=== PATIENT | female | born 1975 | race Caucasian/White ===

== ENCOUNTER 2016-07-28 21:16 | Emergency (ER) | payer SELFPAY ==
[2016-07-28] MEDS ORDERED: Albuterol-Ipratrop 3 mg / 0.5 (3 ml) UD ONE ×2 (21:30→22:42)
[2016-07-28] MEDS ORDERED: Albuterol-Ipratrop 3 mg / 0.5 (3 ml) UD INH STA (22:17)
--- NOTE | 2016-07-28 22:17 | C.PDOC ---
History Of Present Illness Patient is a 40 year old female who presents to the ER with a complaint of SOB and wheezing. Patient states she has been taking her home asthma medication with no relief. Denies fever, chills or chest pain. Chief Complaint (Nursing): Shortness Of Breath History Per: Patient History/Exam Limitations: no limitations Onset/Duration Of Symptoms: Days Current Symptoms Are (Timing): Still Present Initiating Event: Other (Not known) Current Respiratory Medications: See Home Med List Associated Symptoms: denies: Fever, Chills, Chest Pain Recent travel outside of the [place]: No Past Medical History Reviewed: Historical Data, Nursing Documentation, Vital Signs Vital Signs: Last Vital Signs Temp 97.9 F 07/29/16 01:10 Pulse 94 H 07/29/16 01:10 Resp 18 07/29/16 01:10 BP 172/92 H 07/29/16 01:10 Pulse Ox 98 07/29/16 01:10 - Medical History PMH: Asthma, HTN, Hypercholesterolemia, Rheumatoid Arthritis, Sleep Apnea Surgical History: Cholecystectomy - [facility] Procedures INJECT/INFUSE NEC (12/10/12) Family History: States: Unknown Family Hx - Social History Hx Tobacco Use: No Hx Alcohol Use: No Hx Substance Use: No - Immunization History Hx Tetanus Toxoid Vaccination: No Hx Influenza Vaccination: No Hx Pneumococcal Vaccination: No Review Of Systems Constitutional: Negative for: Fever, Chills Cardiovascular: Negative for: Chest Pain Respiratory: Positive for: Shortness of Breath, Wheezing Physical Exam - Physical Exam Appears: Non-toxic, Other (Mildly dyspenic) Skin: Normal Color, Warm, Dry Head: Atraumatic, Normacephalic Eye(s): bilateral: Normal Inspection, EOMI Oral Mucosa: Moist Chest: Symmetrical, No Tenderness Cardiovascular: Rhythm Regular, No Murmur Respiratory: No Rales, Rhonchi, Wheezing Gastrointestinal/Abdominal: Soft, No Tenderness Neurological/Psych: Oriented x3, Normal Speech, Normal Cognition ED Course And Treatment - Laboratory Results Result Diagrams: 07/28/16 22:35 07/28/16 22:35 O2 Sat by Pulse Oximetry: 96 (Room air) Pulse Ox Interpretation: Normal Progress Note: EKG, CXR and blood work ordered. Nebulizer treatment administered. On reexamination, patient feels better, is no longer dyspenic, no longer wheezing, will be discharged home and advised to follow up with PMD. Disposition Counseled Patient/Family Regarding: Diagnosis - Disposition Referrals: at [facility] [Outside] Disposition: HOME/ ROUTINE Disposition Time: 00:57 Condition: STABLE Prescriptions: Albuterol/Ipratropium [Duoneb 3 MG/3 Ml-0.5 MG/3 Ml 3 Ml] 3 ml IH Q6 #20 neb Azithromycin [Zithromax Tri-Luis Daniel] 500 mg PO DAILY #7 tablet Benzonatate [Tessalon Perle] 100 mg PO TID #14 capsule Methylprednisolone [Medrol Dose Pack (21 tabs)] 4 mg PO DAILY #21 mg Instructions: Asthma (ED), Upper Respiratory Infection (ED), Wheezing (ED) - POA Present On Arrival: None - Clinical Impression Clinical Impression: Dyspnea, Upper respiratory infection, Asthma - Scribe Statement The provider has reviewed the documentation as recorded by the Scribe Wily Thomas All medical record entries made by the Scribe were at my direction and personally dictated by me. I have reviewed the chart and agree that the record accurately reflects my personal performance of the history, physical exam, medical decision making, and the department course for this patient. I have also personally directed, reviewed, and agree with the discharge instructions and disposition.
[2016-07-28 22:41] LABS: BASO # 0.1 K/uL (0.0-0.2); BASO % 0.4 % (0.0-2.0); EOS # 0.1 K/uL (0.0-0.7); EOS % 0.3 % (0.0-4.0); HEMATOCRIT 40.6 % (34.0-47.0); LYMPH # 4.6 K/uL (1.0-4.3); LYMPH % 26.4 % (20.0-40.0); MEAN CELL VOLUME 83.8 fL (81.0-99.0); MEAN CORPUSCULAR HEMOGLOBIN 28.7 pg (27.0-31.0); MEAN CORPUSCULAR HGB CONC 34.3 g/dL (33.0-37.0); MONO # 1.1 K/uL (0.0-0.8); MONO % 6.2 % (0.0-10.0); RED CELL DISTRIBUTION WIDTH 14.4 % (11.5-14.5); WHITE BLOOD COUNT 17.3 K/uL (4.8-10.8)
[2016-07-28 22:48] LABS: CHLORIDE 100 mmol/L (98-107)
[2016-07-28 22:49] LABS: POTASSIUM 3.3 mmol/L (3.6-5.2); SODIUM 140 mmol/L (132-148)
[2016-07-28 22:51] LABS: ALB/GLOB RATIO 1.2 (1.0-2.1); ALKALINE PHOSPHATASE 115 U/L (38-126); ALT/SGPT 25 U/L (9-52); AST/SGOT 18 U/L (14-36); BILIRUBIN,TOTAL 0.5 mg/dL (0.2-1.3); BLOOD UREA NITROGEN 15 mg/dL (7-17); CARBON DIOXIDE 28 mmol/L (22-30); GFR AFRICAN-AMERICAN > 60; TOTAL PROTEIN 7.3 g/dL (6.3-8.3)
[2016-07-28 22:52] LABS: CALCIUM 9.2 mg/dl (8.6-10.4); GLUCOSE,RANDOM 106 mg/dL (65-105)
[2016-07-29] MEDS ORDERED: Potassium Chloride 20 mEq/15 ml LIQ UD PO STA (00:51)
[2016-07-29] MEDS ORDERED: Potassium Chloride 20 mEq/15 ml LIQ UD ONE (01:00)
[2016-07-29 01:14] VITALS: BP 172/92; PULSE 94; RESP 18; TEMP 97.9
--- NOTE | 2016-07-29 08:50 | RAD ---
HISTORY: Shortness of breath COMPARISON: No prior. TECHNIQUE: Chest PA and lateral FINDINGS: LUNGS: Mild venous congestion. PLEURA: No significant pleural effusion identified. No pneumothorax apparent. CARDIOVASCULAR: Normal. OSSEOUS STRUCTURES: Degenerative changes in the spine. Lucency through the inferior left scapula may represent artifact. VISUALIZED UPPER ABDOMEN: Normal. OTHER FINDINGS: None. IMPRESSION: Mild venous congestion.
[2016-08-01 19:38] VITALS: O2SAT 96
== END 2016-07-29 01:16 | disposition home or self-care (01) ==
LOC: C.ER 21:16
DX: J06.9 Acute upper respiratory infection, unspecified (principal); J45.909 Unspecified asthma, uncomplicated
CPT/HCPCS: 71020; 80053; 83880; 84484; 85025; 85378; 94640; 96374; 99285; J2930

== ENCOUNTER 2016-10-05 21:37 | Emergency (ER) | payer SELFPAY ==
--- NOTE | 2016-10-05 21:54 | C.PDOC ---
History Of Present Illness Patient presents to the ER with a complaint of a sharp, stabbing, cramping, mid epigastric pain since last night. Denies fever or chills. Time Seen by Provider: 10/05/16 21:54 Chief Complaint (Nursing): Abdominal Pain History Per: Patient History/Exam Limitations: no limitations Onset/Duration Of Symptoms: Days Current Symptoms Are (Timing): Still Present Severity: Moderate Pain Scale Rating Of: 4 Location Of Pain/Discomfort: Epigastric Radiation Of Pain To:: None Quality Of Discomfort: Unable To Describe Associated Symptoms: denies: Fever, Chills Exacerbating Factors: None Alleviating Factors: None Recent travel outside of the [place]: No Abnormal Vaginal Bleeding: No Past Medical History Reviewed: Historical Data, Nursing Documentation, Vital Signs Vital Signs: Last Vital Signs Temp 98.0 F 10/05/16 21:40 Pulse 96 H 10/05/16 21:40 Resp 18 10/05/16 21:40 BP 177/118 H 10/05/16 21:40 Pulse Ox 96 10/05/16 22:10 - Medical History PMH: Asthma, HTN, Hypercholesterolemia, Rheumatoid Arthritis, Sleep Apnea Surgical History: Cholecystectomy - [facility] Procedures INJECT/INFUSE NEC (12/10/12) Family History: States: No Known Family Hx - Social History Hx Tobacco Use: No Hx Alcohol Use: No Hx Substance Use: No - Immunization History Hx Tetanus Toxoid Vaccination: No Hx Influenza Vaccination: No Hx Pneumococcal Vaccination: No Review Of Systems Constitutional: Negative for: Fever, Chills Gastrointestinal: Positive for: Abdominal Pain. Negative for: Nausea, Vomiting Physical Exam - Physical Exam Appears: Non-toxic Skin: Warm, Dry Oral Mucosa: Moist Chest: Symmetrical, No Tenderness Cardiovascular: Rhythm Regular, No Murmur Respiratory: No Rales, No Rhonchi, No Wheezing Gastrointestinal/Abdominal: Soft, No Tenderness, Distention, No Guarding, No Rebound, Other (Tympanic to percussion) Neurological/Psych: Oriented x3 ED Course And Treatment - Laboratory Results Result Diagrams: 10/05/16 22:25 10/05/16 22:25 ECG: Interpreted By Me, Viewed By Me ECG Rhythm: Sinus Rhythm (92), R BBB, Nonspecific Changes O2 Sat by Pulse Oximetry: 96 Pulse Ox Interpretation: Normal Progress Note: Blood work and urinalysis ordered. Toradol, zofran, and protonix administered. spoke with the pt at length about following up regarding the ovarian cyst to rule out ovarian cancerr. pt states that she will. She does state that she get thewse ovarian cysts removed every year or so Reevaluation Time: 01:08 Reassessment Condition: Improved Medical Decision Making Medical Decision Making: Upon provider reevaluation patient is feeling better, is medically stable, and requires no further treatment in the ED at this time. Patient will be discharged home . Counseling was provided and all questions were answered regarding diagnosis and need for follow up with the referred clinic. There is agreement to discharge plan. Return if symptoms persist or worsen. Disposition Counseled Patient/Family Regarding: Studies Performed, Diagnosis, Need For Followup - Disposition Referrals: [facility] [Outside] [facility] [Outside] Disposition: HOME/ ROUTINE Disposition Time: 21:54 Condition: FAIR Additional Instructions: Please follow up regarding the ovarian cyst Instructions: Abdominal Pain (ED), Ovarian Cyst (ED) Forms: [employer] (Romanian) - Clinical Impression Clinical Impression: Abdominal pain, Ovarian cyst - Scribe Statement The provider has reviewed the documentation as recorded by the Scribe Wily Thomas All medical record entries made by the Scribe were at my direction and personally dictated by me. I have reviewed the chart and agree that the record accurately reflects my personal performance of the history, physical exam, medical decision making, and the department course for this patient. I have also personally directed, reviewed, and agree with the discharge instructions and disposition.
[2016-10-05 21:57] VITALS: RESP 18
[2016-10-05 22:27] LABS: BASO # 0.1 K/uL (0.0-0.2); BASO % 0.9 % (0.0-2.0); EOS # 0.2 K/uL (0.0-0.7); EOS % 1.4 % (0.0-4.0); LYMPH # 4.4 K/uL (1.0-4.3); LYMPH % 36.8 % (20.0-40.0); MEAN CORPUSCULAR HEMOGLOBIN 29.4 pg (27.0-31.0); MEAN CORPUSCULAR HGB CONC 34.6 g/dL (33.0-37.0); MEAN PLATELET VOLUME 8.1 fL (7.2-11.7); MONO # 0.6 K/uL (0.0-0.8); RED CELL DISTRIBUTION WIDTH 14.5 % (11.5-14.5)
[2016-10-05 22:37] LABS: CHLORIDE 100 mmol/L (98-107); POTASSIUM 3.3 mmol/L (3.6-5.2); SODIUM 141 mmol/L (132-148)
[2016-10-05 22:39] LABS: BILIRUBIN,TOTAL 0.5 mg/dL (0.2-1.3); GFR AFRICAN-AMERICAN > 60
[2016-10-05 22:40] LABS: ALB/GLOB RATIO 1.2 (1.0-2.1); ALKALINE PHOSPHATASE 105 U/L (38-126); ALT/SGPT 30 U/L (9-52); AST/SGOT 17 U/L (14-36); BLOOD UREA NITROGEN 13 mg/dL (7-17); CARBON DIOXIDE 28 mmol/L (22-30); GLUCOSE,RANDOM 98 mg/dL (65-105); TOTAL PROTEIN 6.7 g/dL (6.3-8.3)
[2016-10-05 22:44] LABS: INR 1.1
[2016-10-05 22:52] LABS: RBC URINE 1 /hpf (0-3); URINE BACTERIA RARE (<OCC); URINE BILIRUBIN NEGATIVE (NEGATIVE); URINE BLOOD NEGATIVE (NEGATIVE); URINE COLOR Yellow (YELLOW); URINE GLUCOSE (UA) NORMAL (Normal); URINE KETONE NEGATIVE (NEGATIVE); URINE LEUKOCYTE ESTERASE NEG Leu/uL (Negative); URINE PROTEIN NEGATIVE (NEGATIVE); URINE UROBILINOGEN NORMAL mg/dL (0.2-1.0); WBC URINE 2 /hpf (0-5)
[2016-10-06] MEDS ORDERED: Iodixanol 320 MG/ML 100 ML BOTTLE IV ONE (00:22)
[2016-10-06 02:06] VITALS: BP 158/93; PULSE 67; TEMP 98; O2SAT 97
--- NOTE | 2016-10-06 08:50 | CT ---
PROCEDURE: CT Abdomen and Pelvis with intravenous contrast. HISTORY: Abdominal pain COMPARISON: None. TECHNIQUE: Contiguous axial images of the abdomen and pelvis. Intravenous contrast was administered. Coronal and Sagittal reformats generated. Radiation dose: Total exam DLP = 936 mGy-cm. This CT exam was performed using one or more of the following dose reduction techniques: Automated exposure control, adjustment of the mA and/or kV according to patient size, and/or use of iterative reconstruction technique. FINDINGS: LOWER THORAX: 4 millimeter subpleural pulmonary nodule at the lateral aspect of the right middle lobe. LIVER: Fatty infiltration of the liver. GALLBLADDER AND BILE DUCTS: Prior cholecystectomy. PANCREAS: Unremarkable. No mass. No ductal dilatation. SPLEEN: Unremarkable. No splenomegaly. ADRENALS: Unremarkable. KIDNEYS AND URETERS: Left renal low-attenuation foci which are too small to adequately characterize. For example, in the lower pole, there is a 7 millimeter hypoechoic cyst with peripheral punctate echogenic focus measuring 1-2 millimeters demonstrating a Hounsfield unit attenuation of 44, indeterminate. This may be better evaluated with multiphasic CT or MR if clinically indicated. BLADDER: Urinary bladder wall is mildly prominent in thickness which may be secondary to a decompressed state or secondary to a cystitis. REPRODUCTIVE: 24 x 15 x 20 centimeter pelvic cyst with septations most likely of ovarian origin. Small left ovarian follicle. Heterogeneous appearance of to the uterus/remnant uterus with internal low-attenuation foci. Correlation with pelvic ultrasound may be helpful if clinically indicated. APPENDIX: Unremarkable. BOWEL: Unremarkable. No obstruction. No gross mural thickening. PERITONEUM: Unremarkable. No fluid collection. No free air. LYMPH NODES: Unremarkable. No enlarged lymph nodes. VASCULATURE: Unremarkable. No aortic aneurysm. BONES: Degenerative changes. OTHER FINDINGS: None. IMPRESSION: 24 x 15 x 20 centimeter pelvic cyst with septations most likely of ovarian origin. Given the position of the cyst, this most likely originates from the right ovary and is worrisome for an ovarian neoplasm. Clinical correlation. Urinary bladder wall is mildly prominent in thickness which may be secondary to a decompressed state or secondary to a cystitis. Clinical correlation. Heterogeneous appearance of to the uterus/remnant uterus with internal low-attenuation foci. Correlation with pelvic ultrasound may be helpful if clinically indicated. Left renal low-attenuation foci which are too small to adequately characterize. For example, in the lower pole, there is a 7 millimeter hypoechoic cyst with peripheral punctate echogenic focus measuring 1-2 millimeters demonstrating a Hounsfield unit attenuation of 44, indeterminate. This may be better evaluated with multiphasic CT or MR if clinically indicated. These findings were preliminarily reported at 12:59 a.m. on 10/06/[address] Julio Child from [facility].
--- NOTE | 2016-10-06 13:37 | CARD ---
APPROVED REPORT EKG Measurement Heart [id number] <Conclusion> Normal sinus rhythm Possible Left atrial enlargement Incomplete right bundle branch block Prolonged QT Abnormal ECG
== END 2016-10-06 02:19 | disposition home or self-care (01) ==
LOC: C.ER 21:37
DX: R10.13 Epigastric pain (principal); N83.201 Unspecified ovarian cyst, right side
CPT/HCPCS: 74177; 80053; 81001; 83690; 85025; 85610; 85730; 93005; 96374; 96375; 99285; C9113; J1885; J2405; Q9967

== ENCOUNTER 2017-02-01 02:22 | Inpatient (IN) | payer MEDICAID ==
--- NOTE | 2017-02-01 03:11 | C.PDOC ---
History Of Present Illness 41 year old female presents to the ER with a complaint of a dry cough for the past 4 days. Patient is currently on a z-pancho; denies any complaint of pain. Time Seen by Provider: 02/01/17 03:00 Chief Complaint (Nursing): Cough, Cold, Congestion History Per: Patient History/Exam Limitations: no limitations Onset/Duration Of Symptoms: Days Current Symptoms Are (Timing): Still Present Location Of Pain: None Sick Contacts (Context): None Associated Symptoms: Cough. denies: Fever, Chills, Sputum Ear Symptoms: Bilateral: None Recent travel outside of the [place]: No Past Medical History Reviewed: Historical Data, Nursing Documentation, Vital Signs Vital Signs: Last Vital Signs Temp 98 F 02/02/17 09:15 Pulse 83 02/02/17 09:15 Resp 18 02/02/17 09:15 BP 124/75 02/02/17 09:15 Pulse Ox 97 02/02/17 09:15 - Medical History PMH: Asthma, HTN, Hypercholesterolemia, Rheumatoid Arthritis, Sleep Apnea Surgical History: Cholecystectomy - [facility] Procedures INJECT/INFUSE NEC (12/10/12) Family History: States: Unknown Family Hx - Social History Hx Tobacco Use: No Hx Alcohol Use: No Hx Substance Use: No - Immunization History Hx Tetanus Toxoid Vaccination: No Hx Influenza Vaccination: No Hx Pneumococcal Vaccination: No Review Of Systems Constitutional: Negative for: Fever, Chills Cardiovascular: Negative for: Chest Pain Respiratory: Positive for: Cough. Negative for: Sputum, Wheezing Gastrointestinal: Negative for: Abdominal Pain Physical Exam - Physical Exam Appears: Non-toxic, No Acute Distress, Other (Smiling, speaking in complete sentences) Skin: Normal Color, Warm, Dry Head: Atraumatic, Normacephalic Eye(s): bilateral: Normal Inspection Ear(s): Bilateral: Normal Nose: Normal Oral Mucosa: Moist Throat: Normal, No Erythema Neck: Normal, Supple Chest: Symmetrical, No Tenderness Cardiovascular: Rhythm Regular Respiratory: Normal Breath Sounds, No Rales, No Rhonchi, No Wheezing Gastrointestinal/Abdominal: Soft, No Tenderness Neurological/Psych: Oriented x3, Normal Speech, Other (No focal deficits) ED Course And Treatment - Laboratory Results Result Diagrams: 02/02/17 06:10 02/02/17 06:10 O2 Sat by Pulse Oximetry: 97 (Room air) Pulse Ox Interpretation: Normal Medical Decision Making Medical Decision Making: CXR ordered. cxr shows infiltarte. accepted by hospital[facility] for failure of outpt treatment pna. Disposition - Disposition Disposition: HOSPITALIZED Disposition Time: 06:00 Condition: STABLE - Clinical Impression Clinical Impression: Pneumonia - Scribe Statement The provider has reviewed the documentation as recorded by the Scribe Wily Thomas All medical record entries made by the Katyibe were at my direction and personally dictated by me. I have reviewed the chart and agree that the record accurately reflects my personal performance of the history, physical exam, medical decision making, and the department course for this patient. I have also personally directed, reviewed, and agree with the discharge instructions and disposition.
[2017-02-01] MEDS ORDERED: Azithromycin 500 MG in Sodium Chloride 0.9% 250 ML IVPB STA (03:58)
[2017-02-01 05:33] LABS: BASO # 0.1 K/uL (0.0-0.2); BASO % 0.5 % (0.0-2.0); EOS % 0.2 % (0.0-4.0); HEMATOCRIT 38.6 % (34.0-47.0); LYMPH # 2.5 K/uL (1.0-4.3); LYMPH % 14.5 % (20.0-40.0); MEAN CELL VOLUME 85.6 fL (81.0-99.0); MEAN CORPUSCULAR HEMOGLOBIN 29.3 pg (27.0-31.0); MEAN CORPUSCULAR HGB CONC 34.2 g/dL (33.0-37.0); MEAN PLATELET VOLUME 8.2 fL (7.2-11.7); MONO # 0.6 K/uL (0.0-0.8); MONO % 3.4 % (0.0-10.0); NRBC % 0.1 % (0.0-2.0); RED CELL DISTRIBUTION WIDTH 14.9 % (11.5-14.5); WHITE BLOOD COUNT 17.2 K/uL (4.8-10.8)
[2017-02-01 05:45] LABS: CALCIUM 8.6 mg/dl (8.6-10.4); GFR AFRICAN-AMERICAN > 60; GLUCOSE,RANDOM 150 mg/dL (65-105)
[2017-02-01 05:47] LABS: ALB/GLOB RATIO 1.4 (1.0-2.1); ALKALINE PHOSPHATASE 89 U/L (38-126); ALT/SGPT 21 U/L (9-52); AST/SGOT 35 U/L (14-36); BLOOD UREA NITROGEN 15 mg/dL (7-17); CARBON DIOXIDE 24 mmol/L (22-30); CHLORIDE 100 mmol/L (98-107); SODIUM 132 mmol/L (132-148); TOTAL PROTEIN 7.1 g/dL (6.3-8.3)
[2017-02-01] MEDS ORDERED: cefTRIAXone IV 1 gm in Dextros 50 ML IVPB ONE (05:49)
--- NOTE | 2017-02-01 05:55 | CP.PCM.HP ---
<AdanAimee ZimmermanNahomi - Last Filed: 02/01/17 06:34> History of Present Illness - History of Present Illness History of Present Illness: CC: "cough" HPI: 41 year old female with past medical history of HTN, sleep apnea and right ovarian cyst presents to the ED for a persistent dry cough. She states is has been going on for 5 days. When she coughs she has chest and thoracic pain. She denies sputum production. She saw her PMD a few days ago who prescribed a z -pack which she completed today with no relief or improvement. She denies fever , sore throat, nasal congestion, runny nose, chills, change in appetite, diarrhea or constipation. She denies recent travel. 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 PMD: Dr. 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 absent: Dyspnea, Wheezing, Chest Congestion, Excessive Mucous Production, Change in Mucous Color - Gastrointestinal Gastrointestinal: absent: Constipation, Diarrhea, Nausea, Vomiting - Genitourinary Genitourinary: absent: Dysuria - Musculoskeletal Musculoskeletal: absent: Numbness, Tingling - Neurological Neurological: absent: Dizziness, Headaches, Weakness - Endocrine Endocrine: absent: Fatigue, Palpitations Past Patient History - Infectious Disease Hx of Infectious Diseases: None - Past Social History Smoking Status: Never Smoked - CARDIAC Hx Hypercholesterolemia: Yes Hx Hypertension: Yes - PULMONARY Hx Asthma: Yes Hx Sleep Apnea: Yes - NEUROLOGICAL Hx Neurological Disorder: No - HEENT Hx HEENT Problems: No - RENAL Hx Chronic Kidney Disease: No - ENDOCRINE/METABOLIC Hx Endocrine Disorders: No - HEMATOLOGICAL/ONCOLOGICAL Hx Blood Disorders: No - INTEGUMENTARY Hx Dermatological Problems: No - MUSCULOSKELETAL/RHEUMATOLOGICAL Hx Rheumatoid Arthritis: Yes - GASTROINTESTINAL Hx Gastrointestinal Disorders: No - GENITOURINARY/GYNECOLOGICAL Hx Genitourinary Disorders: No - PSYCHIATRIC Hx Substance Use: No - SURGICAL HISTORY Hx Cholecystectomy: Yes - ANESTHESIA Hx Anesthesia: Yes Hx Anesthesia Reactions: No Hx Malignant Hyperthermia: No Meds Allergies/Adverse Reactions: Allergies Allergy/AdvReac Type Severity Reaction Status Date / Time diazepam [From Valium] Allergy Severe ANGIOEDEMA Verified 02/01/17 06:29 Physical Exam - Constitutional Appears: No Acute Distress - Head Exam Head Exam: ATRAUMATIC, NORMAL INSPECTION - Eye Exam Eye Exam: EOMI, Normal appearance, PERRL - ENT Exam ENT Exam: Mucous Membranes Moist - Respiratory Exam Respiratory Exam: Clear to Auscultation Bilateral, NORMAL BREATHING PATTERN. absent: Decreased Breath Sounds, Rales, Rhonchi, Wheezes, Stridor - Cardiovascular Exam Cardiovascular Exam: REGULAR RHYTHM, RRR, +S1, +S2. absent: Tachycardia - GI/Abdominal Exam GI & Abdominal Exam: Distended, Firm, Normal Bowel Sounds. absent: Tenderness - Extremities Exam Extremities exam: Positive for: normal inspection. Negative for: pedal edema, tenderness - Back Exam Back exam: NORMAL INSPECTION. absent: paraspinal tenderness, tenderness, vertebral tenderness - Neurological Exam Neurological exam: Alert, Oriented x3 - Psychiatric Exam Psychiatric exam: Anxious - Skin Skin Exam: Dry, Intact, Normal Color, Warm Results - Vital Signs Recent Vital Signs: Last Vital Signs Temp 97.9 F 02/01/17 02:36 Pulse 90 02/01/17 02:36 Resp 20 02/01/17 02:36 BP 139/83 02/01/17 02:36 Pulse Ox 97 02/01/17 03:23 - Labs Result Diagrams: 02/01/17 05:31 02/01/17 05:31 Labs: Laboratory Results - last 24 hr 02/01/17 02/01/17 05:31 05:31 WBC 17.2 H RBC 4.51 Hgb 13.2 Hct 38.6 MCV 85.6 MCH 29.3 MCHC 34.2 RDW 14.9 H Plt Count 317 MPV 8.2 Neut % (Auto) 81.4 H Lymph % (Auto) 14.5 L Mccormick % (Auto) 3.4 Eos % (Auto) 0.2 Baso % (Auto) 0.5 Neut # 14.0 H Lymph # 2.5 Mccormick # 0.6 Eos # 0.0 Baso # 0.1 Sodium 132 Potassium 5.0 Chloride 100 Carbon Dioxide 24 Anion Gap 13 BUN 15 Creatinine 0.4 L Est GFR ( Amer) > 60 Est GFR (Non-Af Amer) > 60 Random Glucose 150 H Calcium 8.6 Total Bilirubin 1.0 AST 35 ALT 21 Alkaline Phosphatase 89 Total Protein 7.1 Albumin 4.1 Globulin 3.0 Albumin/Globulin Ratio 1.4 Assessment & Plan - Assessment and Plan (Free Text) Assessment: 1.) Dry cough - possibly secondary to Pneumonia - f/u chest x-ray - f/u blood culture, sputum culture - Azythromycin 500mg daily - Ceftriaxone 1gm q12h 2,) History of HTN - Continue home medications: * Losartan 100mg po daily * HCTZ 12.5mg po daily * Metoprolol Succinate 50mg po daily * Amlodipine 10mg po daily 3.) History of ovarian cyst - being managed as an outpatient 4.) Prophylaxis - Pepcid 20mg po daily - Heparin SC - SCDs Case discussed with Dr. Susan Arellano PGY-1 <David Davis - Last Filed: 02/01/17 06:48> Results - Vital Signs Recent Vital Signs: Last Vital Signs Temp 97.9 F 02/01/17 02:36 Pulse 90 02/01/17 02:36 Resp 20 02/01/17 02:36 BP 139/83 02/01/17 02:36 Pulse Ox 97 02/01/17 03:23 - Labs Result Diagrams: 02/01/17 05:31 02/01/17 05:31 Labs: Laboratory Results - last 24 hr 02/01/17 02/01/17 05:31 05:31 WBC 17.2 H RBC 4.51 Hgb 13.2 Hct 38.6 MCV 85.6 MCH 29.3 MCHC 34.2 RDW 14.9 H Plt Count 317 MPV 8.2 Neut % (Auto) 81.4 H Lymph % (Auto) 14.5 L Mccormick % (Auto) 3.4 Eos % (Auto) 0.2 Baso % (Auto) 0.5 Neut # 14.0 H Lymph # 2.5 Mccormick # 0.6 Eos # 0.0 Baso # 0.1 Sodium 132 Potassium 5.0 Chloride 100 Carbon Dioxide 24 Anion Gap 13 BUN 15 Creatinine 0.4 L Est GFR ( Amer) > 60 Est GFR (Non-Af Amer) > 60 Random Glucose 150 H Calcium 8.6 Total Bilirubin 1.0 AST 35 ALT 21 Alkaline Phosphatase 89 Total Protein 7.1 Albumin 4.1 Globulin 3.0 Albumin/Globulin Ratio 1.4 Assessment & Plan - Date & Time Date: 02/01/17 (I have seen and examined the patient. I agree with the findings and plan of care as documented by Dr. Arellano. Patient with pneumonia. Failure of outpatient treatment. Check blood and sputum cultures. Ceftriaxone and Azithromycin for now. Continue home meds for history of hypertension. Monitor for acute changes.) Time: 06:47 Attending/Attestation - Attestation I have personally seen and examined this patient.: Yes I have fully participated in the care of the patient.: Yes I have reviewed all pertinent clinical information: Yes
[2017-02-01] MEDS ORDERED: Azithromycin 500mg/250ML NS 500 MG/250 ML BAG IVPB SCH (06:30)
[2017-02-01] MEDS: Azithromycin 500 MG in Sodium Chloride 0.9% 250 ML IVPB SCH (07:09)
[2017-02-01] MEDS ORDERED: Albuterol-Ipratrop 3 mg / 0.5 (3 ml) UD ONE (07:35)
[2017-02-01] MEDS: cefTRIAXone IV 1 gm in Dextros 50 ML IVPB SCH ×2 (07:36→19:01)
[2017-02-01] MEDS: Metoprolol Succinate 50 mg XL Tab PO SCH (11:36)
[2017-02-01] MEDS ORDERED: Promethazine/Cod 6.25mg-10mg/5ml Syr UD PO PRN (13:37)
[2017-02-01] MEDS ORDERED: Albuterol-Ipratrop 3 mg / 0.5 (3 ml) UD INH PRN (13:37)
[2017-02-01] MEDS ORDERED: Albuterol-Ipratrop 3 mg / 0.5 (3 ml) UD INH STA (13:37)
[2017-02-01] MEDS ORDERED: MethylPREDNISolone 40 mg Vial IVP STA (13:42)
--- NOTE | 2017-02-01 13:44 | CP.PCM.PN ---
Subjective - Date & Time of Evaluation Date of Evaluation: 02/01/17 Time of Evaluation: 13:40 - Subjective Subjective: Medical Attending Note: Patient seen and examined at bedside. Patient denies fever, denies chills, reports dry cough, nonproductive and associated wheezing, reports pleuritic chest pain, reports mylagias, denies abdominal pain, denies nausea, denies vomitting, denies dysuria. Objective - Vital Signs/Intake and Output Vital Signs (last 24 hours): Temp Pulse Resp BP Pulse Ox 97.8 F 85 18 130/88 99 02/01/17 10:22 02/01/17 10:22 02/01/17 10:22 02/01/17 10:22 02/01/17 10:22 - Medications Medications: Current Medications Albuterol/Ipratropium (Duoneb 3 Mg/0.5 Mg (3 Ml) Ud) 3 ml INH RSTAT STA Stop: 02/01/17 13:38 Albuterol/Ipratropium (Duoneb 3 Mg/0.5 Mg (3 Ml) Ud) 3 ml INH RQ6 PRN PRN Reason: Shortness of Breath Amlodipine Besylate (Norvasc) 10 mg PO DAILY [facility] Last Admin: 02/01/17 11:36 Dose: 10 mg Famotidine (Pepcid) 20 mg PO DAILY [facility] Last Admin: 02/01/17 11:38 Dose: 20 mg Guaifenesin (Mucinex La) 600 mg PO BID [facility] Heparin Sodium (Porcine) (Heparin) 5,000 units SC Q8 [facility] Last Admin: 02/01/17 13:28 Dose: Not Given Hydrochlorothiazide (Hydrodiuril) 12.5 mg PO DAILY [facility] Last Admin: 02/01/17 11:44 Dose: 12.5 mg Azithromycin 500 mg/ Sodium (Chloride) 250 mls @ 167 mls/hr IVPB Q24H [facility] Last Admin: 02/01/17 07:09 Dose: Not Given Ceftriaxone Sodium (Rocephin Iv 1 Gm Duplex) 50 mls @ 100 mls/hr IVPB Q12H [facility] Last Admin: 02/01/17 07:36 Dose: Not Given Losartan Potassium (Cozaar) 100 mg PO DAILY [facility] Last Admin: 02/01/17 11:36 Dose: 100 mg Metoprolol Succinate (Toprol Xl) 50 mg PO DAILY [facility] Last Admin: 02/01/17 11:36 Dose: 50 mg Promethazine HCl/Codeine (Phenergan/Codeine Oral Syrup) 5 ml PO Q4 PRN PRN Reason: Cough Saccharomyces Boulardii (Florastor) 250 mg PO BID [facility] - Labs Labs: 02/01/17 05:31 02/01/17 05:31 - Constitutional Appears: Non-toxic, No Acute Distress - Head Exam Head Exam: NORMAL INSPECTION - Eye Exam Eye Exam: EOMI - ENT Exam ENT Exam: Mucous Membranes Moist - Respiratory Exam Respiratory Exam: NORMAL BREATHING PATTERN. absent: Decreased Breath Sounds, Rales, Rhonchi, Respiratory Distress, Stridor Additional comments: decreased breathe sounds - Cardiovascular Exam Cardiovascular Exam: REGULAR RHYTHM, +S1, +S2 - GI/Abdominal Exam GI & Abdominal Exam: Soft, Normal Bowel Sounds. absent: Distended, Firm, Guarding, Rigid, Tenderness, Rebound - Extremities Exam Extremities Exam: absent: Pedal Edema, Tenderness - Neurological Exam Neurological Exam: Alert, Awake, Oriented x3 - Psychiatric Exam Psychiatric exam: Normal Affect, Normal Mood - Skin Skin Exam: Dry, Intact, Normal Color, Warm Assessment and Plan (1) Bronchitis Assessment & Plan: Pending official Chest Xray PA and Lateral start Mucinex 600mg PO BID start Phenergan w codeine 5ml PO Q 4H PRN cough Start Azithromycin 500mg IV Q daily start Rocephin 1 gram IV Q 12h Florastor 250mg PO BID stat Duoneb treatment Ordered for Duoneb PRN Q 6H PRN shortness of breathe Order for solumedrol 40mg IVPX1 Order for influenza, mycoplasma Igm, legionella, and strep pneumoniae urine antigen, rapid strep Status: Acute (2) Pulmonary venous congestion Assessment & Plan: ordered for probnp will check echocardiogram Status: Acute (3) Hypertension Assessment & Plan: Norvasc 10mg PO daily Toprol XL 50mg PO daily HCTZ 12.5mg PO daily Cozaar 100mg PO daily monitor vital signs Status: Chronic (4) Sleep apnea Assessment & Plan: CPAP setting at 6 [address]'s [address] cashier [address] Dr[address] Nicho Perera Status: Chronic (5) Prophylactic measure Assessment & Plan: Heparin 5000 units subq8H Pepcid 20mg PO bid Status: Acute
--- NOTE | 2017-02-01 13:47 | RAD ---
HISTORY: cough COMPARISON: Comparison chest 07/28/2016 TECHNIQUE: Chest PA and lateral FINDINGS: LUNGS: Mild bibasilar atelectasis right greater than left, exacerbated in appearance by dense breast tissue. . Developing lower lobe infiltrates could be excluded followup radiographs PLEURA: No significant pleural effusion identified. No pneumothorax apparent. CARDIOVASCULAR: Heart size upper limits of normal/ borderline enlarged. OSSEOUS STRUCTURES: No significant abnormalities. VISUALIZED UPPER ABDOMEN: Normal. OTHER FINDINGS: None. IMPRESSION: Bibasilar atelectasis right greater than left exacerbated in appearance by dense breast tissue. Developing lower lobe infiltrates could be excluded followup radiographs.
[2017-02-01] MEDS ORDERED: Pneumococcal 23-Valent Vaccine IM ONE (15:53)
[2017-02-01] MEDS: guaiFENesin 600 mg ER Tab PO SCH (17:25)
[2017-02-01] MEDS: Saccharomyces Boulardi 250 mg Cap PO SCH (17:25)
[2017-02-02] MEDS: Azithromycin 500 MG in Sodium Chloride 0.9% 250 ML IVPB SCH (06:01)
[2017-02-02 06:21] LABS: BASO # 0.1 K/uL (0.0-0.2); BASO % 0.5 % (0.0-2.0); EOS % 0.1 % (0.0-4.0); HEMATOCRIT 37.2 % (34.0-47.0); LYMPH # 3.8 K/uL (1.0-4.3); LYMPH % 17.5 % (20.0-40.0); MEAN CELL VOLUME 85.7 fL (81.0-99.0); MEAN CORPUSCULAR HEMOGLOBIN 29.9 pg (27.0-31.0); MEAN CORPUSCULAR HGB CONC 34.9 g/dL (33.0-37.0); MEAN PLATELET VOLUME 8.2 fL (7.2-11.7); MONO % 4.6 % (0.0-10.0); RED CELL DISTRIBUTION WIDTH 15.1 % (11.5-14.5); WHITE BLOOD COUNT 21.8 K/uL (4.8-10.8)
[2017-02-02] MEDS: cefTRIAXone IV 1 gm in Dextros 50 ML IVPB SCH ×2 (08:00→19:00)
[2017-02-02 08:18] LABS: ALB/GLOB RATIO 1.3 (1.0-2.1); ALKALINE PHOSPHATASE 88 U/L (38-126); ALT/SGPT 22 U/L (9-52); AST/SGOT 14 U/L (14-36); BILIRUBIN,TOTAL 0.5 mg/dL (0.2-1.3); BLOOD UREA NITROGEN 16 mg/dL (7-17); CALCIUM 8.5 mg/dl (8.6-10.4); CARBON DIOXIDE 25 mmol/L (22-30); CHLORIDE 99 mmol/L (98-107); GFR AFRICAN-AMERICAN > 60; GLUCOSE,RANDOM 128 mg/dL (65-105); MAGNESIUM 1.6 mg/dL (1.6-2.3); PHOSPHOROUS 3.3 mg/dL (2.5-4.5); POTASSIUM 3.6 mmol/L (3.6-5.2); SODIUM 133 mmol/L (132-148); TOTAL PROTEIN 6.3 g/dL (6.3-8.3)
[2017-02-02] MEDS: Saccharomyces Boulardi 250 mg Cap PO SCH ×2 (09:16→17:05)
[2017-02-02] MEDS: Metoprolol Succinate 50 mg XL Tab PO SCH (09:17)
[2017-02-02] MEDS: guaiFENesin 600 mg ER Tab PO SCH ×2 (09:17→17:05)
--- NOTE | 2017-02-02 09:52 | CP.PCM.PN ---
<Aimee Arellano - Last Filed: 02/02/17 17:02> Subjective - Date & Time of Evaluation Date of Evaluation: 02/02/17 Time of Evaluation: 07:00 - Subjective Subjective: Patient was seen and examined at bedside in the AM. Patient reports the cough has improved. Denies fever, chills, abdominal pain, nausea, vomiting, chest pain , palpitations, and shortness of breath. Objective - Vital Signs/Intake and Output Vital Signs (last 24 hours): Temp Pulse Resp BP Pulse Ox 98 F 83 18 124/75 97 02/02/17 09:15 02/02/17 09:15 02/02/17 09:15 02/02/17 09:15 02/02/17 09:15 - Medications Medications: Current Medications Albuterol/Ipratropium (Duoneb 3 Mg/0.5 Mg (3 Ml) Ud) 3 ml INH RQ6 PRN PRN Reason: Shortness of Breath Amlodipine Besylate (Norvasc) 10 mg PO DAILY [facility] Last Admin: 02/02/17 09:17 Dose: 10 mg Famotidine (Pepcid) 20 mg PO DAILY [facility] Last Admin: 02/02/17 09:18 Dose: 20 mg Guaifenesin (Mucinex La) 600 mg PO BID [facility] Last Admin: 02/02/17 09:17 Dose: 600 mg Heparin Sodium (Porcine) (Heparin) 5,000 units SC Q8 [facility] Last Admin: 02/02/17 06:48 Dose: Not Given Hydrochlorothiazide (Hydrodiuril) 12.5 mg PO DAILY [facility] Last Admin: 02/02/17 09:18 Dose: 12.5 mg Azithromycin 500 mg/ Sodium (Chloride) 250 mls @ 167 mls/hr IVPB Q24H [facility] Last Admin: 02/02/17 06:01 Dose: 167 mls/hr Ceftriaxone Sodium (Rocephin Iv 1 Gm Duplex) 50 mls @ 100 mls/hr IVPB Q12H [facility] Last Admin: 02/02/17 08:00 Dose: 100 mls/hr Losartan Potassium (Cozaar) 100 mg PO DAILY [facility] Last Admin: 02/02/17 09:17 Dose: 100 mg Metoprolol Succinate (Toprol Xl) 50 mg PO DAILY [facility] Last Admin: 02/02/17 09:17 Dose: 50 mg Promethazine HCl/Codeine (Phenergan/Codeine Oral Syrup) 5 ml PO Q4 PRN PRN Reason: Cough Last Admin: 02/01/17 21:19 Dose: 5 ml Saccharomyces Boulardii (Florastor) 250 mg PO BID [facility] Last Admin: 02/02/17 09:16 Dose: 250 mg - Labs Labs: 02/02/17 06:10 02/02/17 06:10 - Constitutional Appears: No Acute Distress - Head Exam Head Exam: ATRAUMATIC, NORMAL INSPECTION - Eye Exam Eye Exam: EOMI, Normal appearance - ENT Exam ENT Exam: Mucous Membranes Moist - Respiratory Exam Respiratory Exam: Clear to Ausculation Bilateral, NORMAL BREATHING PATTERN. absent: Rales, Rhonchi, Wheezes, Stridor - Cardiovascular Exam Cardiovascular Exam: REGULAR RHYTHM, RRR, +S1, +S2 - GI/Abdominal Exam GI & Abdominal Exam: Soft, Normal Bowel Sounds. absent: Tenderness - Extremities Exam Extremities Exam: Normal Inspection - Neurological Exam Neurological Exam: Alert, Awake, Oriented x3 - Psychiatric Exam Psychiatric exam: Normal Affect, Normal Mood - Skin Skin Exam: Normal Color, Warm Assessment and Plan - Assessment and Plan (Free Text) Assessment: 1.) Pneumonia vs. Bronchitis Pulm Consult: Dr. Perera --> help appreciated - chest x-ray: Bibasilar atelactasis right greater than left exacerbated in appearance by dense breast tissue. Developing lower lobe infiltrates could be exldued followup radiographs. - f/u blood culture: prelimiary shows no growth - Azythromycin 500mg daily - Ceftriaxone 1gm q12h - Mucinex 600mg PO BID - Duoneb PRN q6h - Negative: Influenza, Urine Leigionella, Mycoplasm; Group A strep 2,) History of HTN - f/u ECHO - Continue home medications: * Losartan 100mg po daily * HCTZ 12.5mg po daily * Metoprolol Succinate 50mg po daily * Amlodipine 10mg po daily 3.) History of ovarian cyst - being managed as an outpatient 4.) History of Sleep apnea Pulm Consult: Dr. Perera --> help appreciated - CPAP: 6 - f/u medical records for sleep apnea 5.) Prophylaxis - Pepcid 20mg po daily - Heparin SC - SCDs Disposition: Patient to be discharged home tomorrow if afebrile for 48 hours on Doxycycline 100mg BID with food for 10 days. Case discussed with Dr. Ander Arellano PGY-1 <Hitesh Worthington - Last Filed: 02/02/17 19:43> Objective - Vital Signs/Intake and Output Vital Signs (last 24 hours): Temp Pulse Resp BP Pulse Ox 98.1 F 82 20 124/69 97 02/02/17 15:14 02/02/17 15:14 02/02/17 15:14 02/02/17 15:14 02/02/17 15:14 Intake and Output: 02/02/17 02/03/17 18:59 06:59 Intake Total 350 Balance 350 - Medications Medications: Current Medications Albuterol/Ipratropium (Duoneb 3 Mg/0.5 Mg (3 Ml) Ud) 3 ml INH RQ6 PRN PRN Reason: Shortness of Breath Amlodipine Besylate (Norvasc) 10 mg PO DAILY [facility] Last Admin: 02/02/17 09:17 Dose: 10 mg Famotidine (Pepcid) 20 mg PO DAILY [facility] Last Admin: 02/02/17 09:18 Dose: 20 mg Guaifenesin (Mucinex La) 600 mg PO BID [facility] Last Admin: 02/02/17 17:05 Dose: 600 mg Heparin Sodium (Porcine) (Heparin) 5,000 units SC Q8 [facility] Last Admin: 02/02/17 13:38 Dose: Not Given Hydrochlorothiazide (Hydrodiuril) 12.5 mg PO DAILY [facility] Last Admin: 02/02/17 09:18 Dose: 12.5 mg Azithromycin 500 mg/ Sodium (Chloride) 250 mls @ 167 mls/hr IVPB Q24H [facility] Last Admin: 02/02/17 06:01 Dose: 167 mls/hr Ceftriaxone Sodium (Rocephin Iv 1 Gm Duplex) 50 mls @ 100 mls/hr IVPB Q12H [facility] Last Admin: 02/02/17 08:00 Dose: 100 mls/hr Losartan Potassium (Cozaar) 100 mg PO DAILY [facility] Last Admin: 02/02/17 09:17 Dose: 100 mg Metoprolol Succinate (Toprol Xl) 50 mg PO DAILY [facility] Last Admin: 02/02/17 09:17 Dose: 50 mg Promethazine HCl/Dextromethorphan (Phenergan Dm Syrup) 5 ml PO Q6H PRN PRN Reason: Cough Saccharomyces Bomehrandii (Florastor) 250 mg PO BID [facility] Last Admin: 02/02/17 17:05 Dose: 250 mg - Labs Labs: 02/02/17 06:10 02/02/17 06:10 Attending/Attestation - Attestation I have personally seen and examined this patient.: Yes I have fully participated in the care of the patient.: Yes I have reviewed all pertinent clinical information, including history, physical exam and plan: Yes Notes (Text): 02/02/17 19:34 Patient was seen and examined at 5:15 PM 02/02/17 650 A Exam, Assessment and Plan were thoroughly gone over with the resident. 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 Possible Developing Infiltrates: Azithromycin and Ceftriaxone 2). Hx HTN 3). Hx Right Ovarian Cyst: She has follow up with unspecified (she could not remember the name) [facility] [employer] [facility] scheduled for 02/16/17 4). Hx Sleep Apnea: she had sleep study performed at [facility]. Request faxed to this institution for record of results as requested by Auto Mechanics Teacher Dr. Trever Worthington D.O.
[2017-02-02 16:15] VITALS: RESP 20
[2017-02-02] MEDS ORDERED: Promethazine DM 6.25 mg-15 mg/5 ml Syrup PO PRN (16:19)
--- NOTE | 2017-02-02 19:08 | CARD ---
APPROVED REPORT EXAM: Two-dimensional and M-mode echocardiogram with Doppler and color Doppler. Other Information Quality : GoodRhythm : INDICATION Dyspnea Congestive Heart Failure RISK FACTORS Hypertension 2D DIMENSIONS IVSd0.9 (0.7-1.1cm)LVDd4.5 (3.9-5.9cm) PWd0.8 (0.7-1.1cm)LVDs3.2 (2.5-4.0cm) FS (%) 28.9 %LVEF (%)55.7 (>50%) M-Mode DIMENSIONS RVDd2.66 (2.1-3.2cm)Left Atrium (MM)4.06 (2.5-4.0cm) IVSd0.98 (0.7-1.1cm)Aortic Root2.91 (2.2-3.7cm) LVDd4.96 (4.0-5.6cm)Aortic Cusp Exc.2.08 (1.5-2.0cm) PWd1.02 (0.7-1.1cm)FS (%) 32 % LVDs3.36 (2.0-3.8cm)LVEF (%)60 (>50%) Mitral Valve MV E Dvnktkkb51.7cm/sMV A Desknxzd12.9cm/sE/A ratio1.4 TDI E/Lateral E'0.0E/Medial E'0.0 Tricuspid Valve TR Peak [id number]/sTR Peak [id number] <Conclusion> poor window. normal size lv,ra & rv. la is mildly dilated. normal lv wall motion,thickness,systolic & diastolic funciton with lvef of 60-65%. normal aortic,mitral,tv & pv. mild mr,tr with normal pulmonary systolic pressures of 18 mm of hg. normal size aortic root. no pericardial effusion.
[2017-02-03] MEDS: Azithromycin 500 MG in Sodium Chloride 0.9% 250 ML IVPB SCH (06:00)
[2017-02-03 07:22] LABS: BASO # 0.1 K/uL (0.0-0.2); BASO % 0.9 % (0.0-2.0); EOS # 0.1 K/uL (0.0-0.7); EOS % 0.8 % (0.0-4.0); LYMPH # 7.8 K/uL (1.0-4.3); LYMPH % 48.4 % (20.0-40.0); MEAN CELL VOLUME 86.5 fL (81.0-99.0); MEAN CORPUSCULAR HEMOGLOBIN 28.9 pg (27.0-31.0); MEAN CORPUSCULAR HGB CONC 33.4 g/dL (33.0-37.0); MEAN PLATELET VOLUME 8.5 fL (7.2-11.7); MONO # 0.9 K/uL (0.0-0.8); MONO % 5.7 % (0.0-10.0); PLATELET COUNT 324 K/uL (130-400); WHITE BLOOD COUNT 16.2 K/uL (4.8-10.8)
[2017-02-03] MEDS: cefTRIAXone IV 1 gm in Dextros 50 ML IVPB SCH (07:30)
--- NOTE | 2017-02-03 07:47 | CP.PCM.DIS ---
<Aimee Arellano - Last Filed: 02/03/17 13:01> Provider - Provider Date of Admission: 02/01/17 05:52 Attending physician: Hitesh Worthington MD Time Spent in preparation of Discharge (in minutes): 40 Hospital Course - Lab Results Lab Results: Micro Results 02/01/17 05:00 Blood Blood Culture - Preliminary NO GROWTH AFTER 24 HOURS 02/01/17 05:30 Blood Blood Culture - Preliminary NO GROWTH AFTER 24 HOURS Most Recent Lab Values WBC 16.2 K/uL (4.8-10.8) H 02/03/17 07:08 RBC 4.85 Mil/uL (3.80-5.20) 02/03/17 07:08 Hgb 14.0 g/dL (11.0-16.0) 02/03/17 07:08 Hct 42.0 % (34.0-47.0) 02/03/17 07:08 MCV 86.5 fL (81.0-99.0) 02/03/17 07:08 MCH 28.9 pg (27.0-31.0) 02/03/17 07:08 MCHC 33.4 g/dL (33.0-37.0) 02/03/17 07:08 RDW 15.0 % (11.5-14.5) H 02/03/17 07:08 Plt Count 324 K/uL (130-400) 02/03/17 07:08 MPV 8.5 fL (7.2-11.7) 02/03/17 07:08 Neut % (Auto) 44.2 % (50.0-75.0) L 02/03/17 07:08 Lymph % (Auto) 48.4 % (20.0-40.0) H 02/03/17 07:08 [place] % (Auto) 5.7 % (0.0-10.0) 02/03/17 07:08 Eos % (Auto) 0.8 % (0.0-4.0) 02/03/17 07:08 Baso % (Auto) 0.9 % (0.0-2.0) 02/03/17 07:08 Neut # 7.2 K/uL (1.8-7.0) H 02/03/17 07:08 Lymph # 7.8 K/uL (1.0-4.3) H 02/03/17 07:08 [place] # 0.9 K/uL (0.0-0.8) H 02/03/17 07:08 Eos # 0.1 K/uL (0.0-0.7) 02/03/17 07:08 Baso # 0.1 K/uL (0.0-0.2) 02/03/17 07:08 D-Dimer, Quantitative < 200.0 ng/mlDDU (0-243) 02/01/17 17:08 Sodium 133 mmol/L (132-148) 02/02/17 06:10 Potassium 3.6 mmol/L (3.6-5.2) 02/02/17 06:10 Chloride 99 mmol/L (98-107) 02/02/17 06:10 Carbon Dioxide 25 mmol/L (22-30) 02/02/17 06:10 Anion Gap 12 (10-20) 02/02/17 06:10 BUN 16 mg/dL (7-17) 02/02/17 06:10 Creatinine 0.5 mg/dL (0.7-1.2) L 02/02/17 06:10 Est GFR ( Amer) > 60 02/02/17 06:10 Est GFR (Non-Af Amer) > 60 02/02/17 06:10 POC Glucose (mg/dL) 78 mg/dL (65-110) 02/01/17 11:58 Random Glucose 128 mg/dL (65-105) H 02/02/17 06:10 Hemoglobin A1c 5.6 % (4.2-6.5) 02/02/17 06:10 Calcium 8.5 mg/dl (8.6-10.4) L 02/02/17 06:10 Phosphorus 3.3 mg/dL (2.5-4.5) 02/02/17 06:10 Magnesium 1.6 mg/dL (1.6-2.3) 02/02/17 06:10 Total Bilirubin 0.5 mg/dL (0.2-1.3) 02/02/17 06:10 AST 14 U/L (14-36) D 02/02/17 06:10 ALT 22 U/L (9-52) 02/02/17 06:10 Alkaline Phosphatase 88 U/L (38-126) 02/02/17 06:10 NT-Pro-B Natriuret Pep 98.5 pg/mL (0-450) 02/01/17 17:08 Total Protein 6.3 g/dL (6.3-8.3) 02/02/17 06:10 Albumin 3.6 g/dL (3.5-5.0) 02/02/17 06:10 Globulin 2.7 gm/dL (2.2-3.9) 02/02/17 06:10 Albumin/Globulin Ratio 1.3 (1.0-2.1) 02/02/17 06:10 Influenza Typ A,B (EIA) Negative for flu a/b (NEGATIVE) 02/01/17 12:16 Ur L.pneumophila Ag Negative (NEGATIVE) 02/01/17 12:17 Mycoplasma pneumon IgM Negative (NEGATIVE) 02/01/17 17:08 Grp A Beta Strep Ag Negative (NEGATIVE) 02/01/17 17:08 - Hospital Course Hospital Course: CC: "cough" HPI: 41 year old female with past medical history of HTN, sleep apnea and right ovarian cyst presents to the ED for a persistent dry cough. She states is has been going on for 5 days. When she coughs she has chest and thoracic pain. She denies sputum production. She saw her PMD a few days ago who prescribed a z -pack which she completed today with no relief or improvement. She denies fever , sore throat, nasal congestion, runny nose, chills, change in appetite, diarrhea or constipation. She denies recent travel. 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 PMD: Dr. 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: [employer] Medical history: HTN, sleep apnea, right ovarian cyst measuring 26cm per patient Surgical History: denies Medications: Losartan/HCTZ: 100mg/12.5mg po daily; Metoprolol ER 50mg po daily; Amlodipine 10mg po daily Allergies: Valium - throat swelling Family History: Father passed at the age of 68yo due to CHF; Mom - HTN Social History: Works as a pharmacy assistant; denies smoking, alcohol use, or illicit drug use Hospital Course: Upon admission the following imaging exams were conducted: Chest Xray: Bibasilar atelectasis right greater than left exacerbated in appearance by dense breast tissue. Developing lower lobe infiltrates. Echocardiogram: Normal size LV, RA, RV. LA is mildly dilated. Normal LV wall motion, thickness, systolic and diastolic function with LV EF of 60-65%. Normal aortic, mitral, tricuspid, and pulmonic valves. Mild mitral regurgitation and tricuspid regurgitation with normal pulmonary systolic pressures of 18 mmHg. Normal size aortic root. No pericardial effusion. During the course of her stay at the hospital, patient's cough had improved and patient remained afebrile for the past 48 hours. Patient has clinically improved and stable for discharge. This is a brief summary of the patient's hospital course. Please review EMR for full record. The following instructions were explained to patient and copy will be provided to her at the time of discharge: 1). Follow up with your PMD Dr. Kim Locke in the next 7 to 10 days. 2). Through Dr. Locke's office you will need a repeat Chest X Ray in 6 to 8 weeks to make sure that your Pneumonia has resolved. 3). Follow up as already planned with your Cone Classifier Tender at [facility] on 02/16 for further treatment of your Ovarian Cyst. 4). Follow up with your Sole Molding Machine Operator Dr. Perera in the next 7 to 10 days for your history of Sleep Apnea. 5). Please have the following prescription filled at your pharmacy and take as directed: Doxycycline 100 mg, 1 tablet by mouth 2x/day (breakfast 7 AM and dinner 7 PM), Dispense #24, NO refills Florastor 250 mg, 1 tablet by mouth 2x/day (9 AM and 5 PM), Dispense #84, NO refills 6). If the Florastor is too expensive for you, please ask your pharmacist which probiotic that he/she recommends and take (but not within 2 hours of Doxcycline dose) for the next 42 days. 7).Stay well hydrated with water. 8). You stated that you had enough of your home medications for blood pressure so please continue to take the following: Norvasc 10 mg 1 tablet by mouth 1x/day Cozaar/HCTZ 100/12.5 mg 1 tablet by mouth 1x/day Metoprolol XL 50 mg 1 tablet by mouth 1x/day 9). Please take care and be well. Discharge Exam - Head Exam Head Exam: ATRAUMATIC, NORMAL INSPECTION - Eye Exam Eye Exam: EOMI, Normal appearance - ENT Exam ENT Exam: Mucous Membranes Moist - Respiratory Exam Respiratory Exam: Clear to PA & Lateral, NORMAL BREATHING PATTERN - Cardiovascular Exam Cardiovascular Exam: REGULAR RHYTHM, RRR, +S1, +S2 - GI/Abdominal Exam GI & Abdominal Exam: Normal Bowel Sounds, Soft. absent: Tenderness - Extremities Exam Extremities exam: normal inspection - Neurological Exam Neurological exam: Alert, Oriented x3 - Psychiatric Exam Psychiatric exam: Normal Affect, Normal Mood - Skin Skin Exam: Normal Color, Warm Discharge Plan - Follow Up Plan Condition: STABLE Disposition: HOME/ ROUTINE Instructions: Sleep Apnea (DC), Hypertension (DC), Hypertension (GEN), Pneumonia (DC) Additional Instructions: The following instructions were explained to patient and copy will be provided to her at the time of discharge: 1). Follow up with your PMD Dr. Kim Locke in the next 7 to 10 days. 2). Through Dr. Locke's office you will need a repeat Chest X Ray in 6 to 8 weeks to make sure that your Pneumonia has resolved. 3). Follow up as already planned with your [facility] Classifier Tender at [facility] on 02/16 for further treatment of your Ovarian Cyst. 4). Follow up with your Sole Molding Machine Operator Dr. Perera in the next 7 to 10 days for your history of Sleep Apnea. 5). Please have the following prescription filled at your pharmacy and take as directed: Doxycycline 100 mg, 1 tablet by mouth 2x/day (breakfast 7 AM and dinner 7 PM), Dispense #24, NO refills Florastor 250 mg, 1 tablet by mouth 2x/day (9 AM and 5 PM), Dispense #84, NO refills 6). If the Florastor is too expensive for you, please ask your pharmacist which probiotic that he/she recommends and take (but not within 2 hours of Doxcycline dose) for the next 42 days. 7).Stay well hydrated with water. 8). You stated that you had enough of your home medications for blood pressure so please continue to take the following: Norvasc 10 mg 1 tablet by mouth 1x/day Cozaar/HCTZ 100/12.5 mg 1 tablet by mouth 1x/day Metoprolol XL 50 mg 1 tablet by mouth 1x/day 9). Please take care and be well. <Hitesh Worthington - Last Filed: 02/03/17 19:36> Provider - Provider Date of Admission: 02/01/17 05:52 Attending physician: Hitesh Worthington MD Hospital Course - Lab Results Lab Results: Micro Results 02/01/17 05:00 Blood Blood Culture - Preliminary NO GROWTH AFTER 48 HOURS 02/01/17 05:30 Blood Blood Culture - Preliminary NO GROWTH AFTER 48 HOURS 02/01/17 14:59 Throat Group A Strep Throat Culture - Final NO BETA STREP GROUP A ISOLATED. Most Recent Lab Values WBC 16.2 K/uL (4.8-10.8) H 02/03/17 07:08 RBC 4.85 Mil/uL (3.80-5.20) 02/03/17 07:08 Hgb 14.0 g/dL (11.0-16.0) 02/03/17 07:08 Hct 42.0 % (34.0-47.0) 02/03/17 07:08 MCV 86.5 fL (81.0-99.0) 02/03/17 07:08 MCH 28.9 pg (27.0-31.0) 02/03/17 07:08 MCHC 33.4 g/dL (33.0-37.0) 02/03/17 07:08 RDW 15.0 % (11.5-14.5) H 02/03/17 07:08 Plt Count 324 K/uL (130-400) 02/03/17 07:08 MPV 8.5 fL (7.2-11.7) 02/03/17 07:08 Neut % (Auto) 44.2 % (50.0-75.0) L 02/03/17 07:08 Lymph % (Auto) 48.4 % (20.0-40.0) H 02/03/17 07:08 [place] % (Auto) 5.7 % (0.0-10.0) 02/03/17 07:08 Eos % (Auto) 0.8 % (0.0-4.0) 02/03/17 07:08 Baso % (Auto) 0.9 % (0.0-2.0) 02/03/17 07:08 Neut # 7.2 K/uL (1.8-7.0) H 02/03/17 07:08 Lymph # 7.8 K/uL (1.0-4.3) H 02/03/17 07:08 [place] # 0.9 K/uL (0.0-0.8) H 02/03/17 07:08 Eos # 0.1 K/uL (0.0-0.7) 02/03/17 07:08 Baso # 0.1 K/uL (0.0-0.2) 02/03/17 07:08 Neutrophils % (Manual) 37 % (50-75) L 02/03/17 07:08 Band Neutrophils % 3 % (0-2) H 02/03/17 07:08 Lymphocytes % (Manual) 43 % (20-40) H 02/03/17 07:08 Reactive Lymphs % 4 % (0-0) H 02/03/17 07:08 Monocytes % (Manual) 8 % (0-10) 02/03/17 07:08 Eosinophils % (Manual) 1 % (0-4) 02/03/17 07:08 Metamyelocytes % 2 % (0-0) H 02/03/17 07:08 Myelocytes % 2 % (0-0) H 02/03/17 07:08 Platelet Estimate Normal (NORMAL) 02/03/17 07:08 Basophilic Stippling Slight 02/03/17 07:08 Anisocytosis (manual) Slight 02/03/17 07:08 D-Dimer, Quantitative < 200.0 ng/mlDDU (0-243) 02/01/17 17:08 Sodium 136 mmol/L (132-148) 02/03/17 07:08 Potassium 3.5 mmol/L (3.6-5.2) L 02/03/17 07:08 Chloride 98 mmol/L (98-107) 02/03/17 07:08 Carbon Dioxide 31 mmol/L (22-30) H 02/03/17 07:08 Anion Gap 10 (10-20) 02/03/17 07:08 BUN 15 mg/dL (7-17) 02/03/17 07:08 Creatinine 0.6 mg/dL (0.7-1.2) L 02/03/17 07:08 Est GFR ( Amer) > 60 02/03/17 07:08 Est GFR (Non-Af Amer) > 60 02/03/17 07:08 POC Glucose (mg/dL) 78 mg/dL (65-110) 02/01/17 11:58 Random Glucose 73 mg/dL (65-105) 02/03/17 07:08 Hemoglobin A1c 5.6 % (4.2-6.5) 02/02/17 06:10 Calcium 8.0 mg/dl (8.6-10.4) L 02/03/17 07:08 Phosphorus 4.2 mg/dL (2.5-4.5) 02/03/17 07:08 Magnesium 1.6 mg/dL (1.6-2.3) 02/03/17 07:08 Total Bilirubin 0.5 mg/dL (0.2-1.3) 02/03/17 07:08 AST 13 U/L (14-36) L 02/03/17 07:08 ALT 25 U/L (9-52) 02/03/17 07:08 Alkaline Phosphatase 85 U/L (38-126) 02/03/17 07:08 NT-Pro-B Natriuret Pep 98.5 pg/mL (0-450) 02/01/17 17:08 Total Protein 6.3 g/dL (6.3-8.3) 02/03/17 07:08 Albumin 3.7 g/dL (3.5-5.0) 02/03/17 07:08 Globulin 2.6 gm/dL (2.2-3.9) 02/03/17 07:08 Albumin/Globulin Ratio 1.4 (1.0-2.1) 02/03/17 07:08 Influenza Typ A,B (EIA) Negative for flu a/b (NEGATIVE) 02/01/17 12:16 Ur L.pneumophila Ag Negative (NEGATIVE) 02/01/17 12:17 Mycoplasma pneumon IgM Negative (NEGATIVE) 02/01/17 17:08 Grp A Beta Strep Ag Negative (NEGATIVE) 02/01/17 17:08 Attending/Attestation - Attestation I have personally seen and examined this patient.: Yes I have fully participated in the care of the patient.: Yes I have reviewed all pertinent clinical information, including history, physical exam and plan: Yes Notes (Text): 02/03/17 19:36 Please see my progress note 02/03/17. Hitesh Worthington D.O.
[2017-02-03 08:08] LABS: ALB/GLOB RATIO 1.4 (1.0-2.1); ALKALINE PHOSPHATASE 85 U/L (38-126); ALT/SGPT 25 U/L (9-52); AST/SGOT 13 U/L (14-36); BILIRUBIN,TOTAL 0.5 mg/dL (0.2-1.3); BLOOD UREA NITROGEN 15 mg/dL (7-17); CARBON DIOXIDE 31 mmol/L (22-30); CHLORIDE 98 mmol/L (98-107); GFR AFRICAN-AMERICAN > 60; GLUCOSE,RANDOM 73 mg/dL (65-105); MAGNESIUM 1.6 mg/dL (1.6-2.3); PHOSPHOROUS 4.2 mg/dL (2.5-4.5); POTASSIUM 3.5 mmol/L (3.6-5.2); SODIUM 136 mmol/L (132-148); TOTAL PROTEIN 6.3 g/dL (6.3-8.3)
--- NOTE | 2017-02-03 08:34 | CP.PCM.PN ---
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 NO sputum production NO chest pain NO SOB NO dyshpagia/odynophagia NO abdominal pain NO n/v/d/c NO burning/pain with urination NO other complaints upon FULL ROS Also on Exam: General: AAOx3, NAD HEENT: NCA, EOMI, PERRLA, NO cervical lymphadenopathy, NO thyromegaly, NO pharyngeal erythema/exudate Cardio: NS1 and NS2, NO M/R/G Resp: CTA Bilaterally, NO R/R/W GI: Abdominal Distention, NO pain with palpation, BSx4, Soft, NO guarding/ rebound tenderness, Liver/Spleen could not be adequately palpated due to distention Ext: NO edema, Capillary Refill is 2 seconds, Pulses are strong and equal Neuro: CN II through XII grossly intact Assessments: 1). Possible Developing Infiltrates: Azithromycin and Ceftriaxone 2). Hx HTN 3). Hx Right Ovarian Cyst: She has follow up with unspecified (she could not remember the name) Senior Network Security Engineer at [facility] scheduled for 02/16/17 4). Hx Sleep Apnea: she had sleep study performed at [facility]. Request faxed to this institution for record of results as requested by Waiter Dr. Perera Patients vitals are stable. NO fevers in the past 48 hours. WBC count is declining. Patient is clinically improved Patient is stable for discharge The following instructions were explained to patient and copy will be provided to her at the time of discharge: 1). Follow up with your PMD Dr. Kim Locke in the next 7 to 10 days. 2). Through Dr. Locke's office you will need a repeat Chest X Ray in 6 to 8 weeks to make sure that your Pneumonia has resolved. 3). Follow up as already planned with your Senior Network Security Engineer at [facility] on 02/16 for further treatment of your Ovarian Cyst. 4). Follow up with your Waiter Dr. Perera in the next 7 to 10 days for your history of Sleep Apnea. 5). Please have the following prescription filled at your pharmacy and take as directed: Doxycycline 100 mg, 1 tablet by mouth 2x/day (breakfast 7 AM and dinner 7 PM), Dispense #24, NO refills Florastor 250 mg, 1 tablet by mouth 2x/day (9 AM and 5 PM), Dispense #84, NO refills 6). If the Florastor is too expensive for you, please ask your pharmacist which probiotic that he/she recommends and take (but not within 2 hours of Doxcycline dose) for the next 42 days. 7).Stay well hydrated with water. 8). You stated that you had enough of your home medications for blood pressure so please continue to take the following: Norvasc 10 mg 1 tablet by mouth 1x/day Cozaar/HCTZ 100/12.5 mg 1 tablet by mouth 1x/day Metoprolol XL 50 mg 1 tablet by mouth 1x/day 9). Please take care and be well. Hitesh Worthington D.O. Objective - Vital Signs/Intake and Output Vital Signs (last 24 hours): Temp Pulse Resp BP Pulse Ox 98.5 F 85 20 123/76 97 02/03/17 00:00 02/03/17 00:00 02/03/17 00:00 02/03/17 00:00 02/03/17 00:00 Intake and Output: 02/03/17 02/03/17 06:59 18:59 Intake Total 350 Balance 350 - Medications Medications: Current Medications Albuterol/Ipratropium (Duoneb 3 Mg/0.5 Mg (3 Ml) Ud) 3 ml INH RQ6 PRN PRN Reason: Shortness of Breath Amlodipine Besylate (Norvasc) 10 mg PO DAILY [facility] Last Admin: 02/02/17 09:17 Dose: 10 mg Famotidine (Pepcid) 20 mg PO DAILY [facility] Last Admin: 02/02/17 09:18 Dose: 20 mg Guaifenesin (Mucinex La) 600 mg PO BID [facility] Last Admin: 02/02/17 17:05 Dose: 600 mg Heparin Sodium (Porcine) (Heparin) 5,000 units SC Q8 [facility] Last Admin: 02/03/17 06:08 Dose: Not Given Hydrochlorothiazide (Hydrodiuril) 12.5 mg PO DAILY [facility] Last Admin: 02/02/17 09:18 Dose: 12.5 mg Azithromycin 500 mg/ Sodium (Chloride) 250 mls @ 167 mls/hr IVPB Q24H [facility] Last Admin: 02/03/17 06:00 Dose: 167 mls/hr Ceftriaxone Sodium (Rocephin Iv 1 Gm Duplex) 50 mls @ 100 mls/hr IVPB Q12H [facility] Last Admin: 02/02/17 19:00 Dose: 100 mls/hr Losartan Potassium (Cozaar) 100 mg PO DAILY [facility] Last Admin: 02/02/17 09:17 Dose: 100 mg Metoprolol Succinate (Toprol Xl) 50 mg PO DAILY [facility] Last Admin: 02/02/17 09:17 Dose: 50 mg Promethazine HCl/Dextromethorphan (Phenergan Dm Syrup) 5 ml PO Q6H PRN PRN Reason: Cough Saccharomyces Boulardii (Florastor) 250 mg PO BID [facility] Last Admin: 02/02/17 17:05 Dose: 250 mg - Labs Labs: 02/03/17 07:08 02/03/17 07:08
[2017-02-03 08:51] VITALS: BP 121/82; PULSE 79; TEMP 97.7; O2SAT 98
[2017-02-03] MEDS: Saccharomyces Boulardi 250 mg Cap PO SCH (09:02)
[2017-02-03] MEDS: Metoprolol Succinate 50 mg XL Tab PO SCH (09:03)
[2017-02-03] MEDS: guaiFENesin 600 mg ER Tab PO SCH (09:08)
[2017-02-03] MEDS ORDERED: Potassium Chloride 10 mEq ER Tab PO ONE (10:00)
[2017-02-03] MEDS ORDERED: Influenza Vaccine 60 mcg/0.5 mL SYR (4YR UP) IM ONE (10:00)
[2017-02-03 10:54] LABS: EOSINOPHIL 1 % (0-4); METAMYELOCYTE 2 % (0-0); MYELOCYTE 2 % (0-0); NEUTROPHIL 37 % (50-75); REACTIVE LYMPHOCYTES 4 % (0-0); TOTAL CELLS COUNTED 100
== END 2017-02-03 10:35 | disposition home or self-care (01) | DRG 90 ==
LOC: C.ER 02:22 → C.9E 05:52 → C.6T 09:44
PROVIDERS: ADMIT Family Medicine; ATTEND Family Medicine
PROC: 5A09357 Assistance with Respiratory Ventilation, Less than 24 Consecutive Hours, Continuous Positive Airway Pressure (ICD-10-PCS; principal; 2017-02-02)
DX: J18.9 Pneumonia, unspecified organism (principal); E78.00 Pure hypercholesterolemia, unspecified; J45.909 Unspecified asthma, uncomplicated; I10 Essential (primary) hypertension; M06.9 Rheumatoid arthritis, unspecified; G47.30 Sleep apnea, unspecified; Z90.49 Acquired absence of other specified parts of digestive tract; J06.9 Acute upper respiratory infection, unspecified

== ENCOUNTER 2017-08-25 04:30 | Emergency (ER) | payer MEDICAID ==
[2017-08-25] MEDS ORDERED: Dexamethasone 4 mg/1 ml IM STA (05:06)
[2017-08-25] MEDS ORDERED: Acetaminophen-Codeine 300/30 mg Tab PO STA (05:06)
[2017-08-25] MEDS ORDERED: Acetaminophen-Codeine 300/30 mg Tab PO ONE (05:14)
--- NOTE | 2017-08-25 05:42 | C.PDOC ---
History Of Present Illness 41 y/o female presents to the ED complaining of a sore throat for 2 days. Associated with subjective fever and chills. Patient called PMD yesterday, who phoned in prescriptions for Keflex and Motrin. Patient notes no improvement despite taking meds as prescribed. Otherwise denies any cough, congestion, SOB, or chest pain. Time Seen by Provider: 08/25/17 04:43 Chief Complaint (Nursing): ENT Problem History Per: Patient History/Exam Limitations: None Onset/Duration Of Symptoms: Days Current Symptoms Are (Timing): Still Present Past Medical History Reviewed: Historical Data, Nursing Documentation, Vital Signs Vital Signs: Last Vital Signs Temp 99.7 F H 08/25/17 05:54 Pulse 103 H 08/25/17 05:54 Resp 22 08/25/17 05:54 BP 150/94 H 08/25/17 05:54 Pulse Ox 97 08/25/17 06:19 - Medical History PMH: Asthma, HTN, Hypercholesterolemia, Rheumatoid Arthritis, Sleep Apnea Denies: Chronic Kidney Disease Surgical History: Cholecystectomy - [facility] Procedures ASSISTANCE WITH RESPIRATORY VENTILATION, <24 HRS, CPAP (02/01/17) INJECT/INFUSE NEC (12/10/12) Family History: States: Unknown Family Hx - Social History Hx Tobacco Use: No Hx Alcohol Use: No Hx Substance Use: No - Immunization History Hx Tetanus Toxoid Vaccination: No Hx Influenza Vaccination: No Hx Pneumococcal Vaccination: No Review Of Systems Constitutional: Positive for: Fever, Chills ENT: Positive for: Throat Pain. Negative for: Nose Congestion Cardiovascular: Negative for: Chest Pain Respiratory: Negative for: Cough, Shortness of Breath Physical Exam - Physical Exam Appears: Non-toxic, No Acute Distress Skin: Normal Color, Warm, Dry Head: Atraumatic, Normacephalic Eye(s): bilateral: Normal Inspection, PERRL, EOMI Ear(s): Bilateral: Normal Oral Mucosa: Moist Throat: Exudate (tonsillar enlargement with exudates bilaterally), Other (Uvula midline; no signs of abscess) Neck: Normal ROM, Supple Chest: Symmetrical Cardiovascular: Rhythm Regular, No Murmur Respiratory: Normal Breath Sounds, No Rales, No Rhonchi, No Wheezing Extremity: Bilateral: Atraumatic, Normal Color And Temperature Pulses: Left Radial: Normal, Right Radial: Normal Neurological/Psych: Oriented x3, Normal Speech ED Course And Treatment O2 Sat by Pulse Oximetry: 97 (RA) Pulse Ox Interpretation: Normal Progress Note: Patient given Decadron inj IM and PO Acetaminophen/Codeine. On reevaluation, patient reports improvement and is stable for discharge home. Provided prescription for penicillin. Patient advised to D/C keflex and take PCN and motrin as prescribed and follow up with PMD. Disposition Counseled Patient/Family Regarding: Diagnosis, Need For Followup, Rx Given - Disposition Referrals: Kim Locke MD [Non-Staff] - Disposition: HOME/ ROUTINE Disposition Time: 05:40 Condition: STABLE Additional Instructions: Discontinue keflex/ Take Penicilin as prescribed Take motrin and tylenol for pain Gargle with warm salt water or CHLOraseptic spray Return to ER if worse Prescriptions: Penicillin VK [Penicillin VK Tab] 500 mg PO Q6H #28 tab Instructions: Sore Throat, Adult (DC) Forms: [employer] (Vietnamese) - POA Present On Arrival: None - Clinical Impression Clinical Impression: Acute pharyngitis - PA / MANAGER FIELD SERVICES / Resident Statement MD/DO has reviewed & agrees with the documentation as recorded. - Scribe Statement The provider has reviewed the documentation as recorded by the Scribe (Adelina Ford) All medical record entries made by the Scribe were at my direction and personally dictated by me. I have reviewed the chart and agree that the record accurately reflects my personal performance of the history, physical exam, medical decision making, and the department course for this patient. I have also personally directed, reviewed, and agree with the discharge instructions and disposition.
[2017-08-25 05:55] VITALS: BP 150/94; PULSE 103; RESP 22; TEMP 99.7
[2017-08-25 06:17] VITALS: O2SAT 97
== END 2017-08-25 06:00 | disposition home or self-care (01) ==
LOC: C.ER 04:30
DX: J02.9 Acute pharyngitis, unspecified (principal); E78.00 Pure hypercholesterolemia, unspecified; I10 Essential (primary) hypertension; M06.9 Rheumatoid arthritis, unspecified
CPT/HCPCS: 96372; 99283; J1100

== ENCOUNTER 2018-02-17 23:55 | Emergency (ER) | payer MEDICAID ==
[2018-02-17 23:55] VITALS: BMI 34.7
--- NOTE | 2018-02-18 01:29 | C.PDOC ---
History Of Present Illness 42 year old female with PMHx of asthma presents to the ED c/o congestions, nasal discharge, productive cough with yellow phlegm for the past 3 days. Patient reports taking OTC flu and cough medications. Patient has sick contact at home with daughter who has same symptoms. Patient denies fever, chills, vomit, diarrhea, rash, dysuria, recent travel. Time Seen by Provider: 02/17/18 23:58 Chief Complaint (Nursing): Cough, Cold, Congestion History Per: Patient History/Exam Limitations: no limitations Onset/Duration Of Symptoms: Days (3) Current Symptoms Are (Timing): Still Present Recent travel outside of the [place]: No Additional History Per: Patient Past Medical History Reviewed: Historical Data, Nursing Documentation, Vital Signs Vital Signs: Last Vital Signs Temp 98.4 F 02/18/18 00:06 Pulse 101 H 02/18/18 00:06 Resp 20 02/18/18 00:06 BP 155/102 H 02/18/18 00:51 Pulse Ox 98 02/18/18 00:06 - Medical History PMH: Asthma, HTN, Hypercholesterolemia, Rheumatoid Arthritis, Sleep Apnea Denies: Chronic Kidney Disease Surgical History: Cholecystectomy - [facility] Procedures ASSISTANCE WITH RESPIRATORY VENTILATION, <24 HRS, CPAP (02/01/17) INJECT/INFUSE NEC (12/10/12) Family History: States: Unknown Family Hx - Social History Hx Tobacco Use: No Hx Alcohol Use: No Hx Substance Use: No - Immunization History Hx Tetanus Toxoid Vaccination: No Hx Influenza Vaccination: No Hx Pneumococcal Vaccination: No Review Of Systems Constitutional: Negative for: Fever, Chills ENT: Positive for: Nose Discharge, Nose Congestion. Negative for: Throat Pain, Throat Swelling Cardiovascular: Negative for: Chest Pain Respiratory: Positive for: Cough, Sputum. Negative for: Shortness of Breath, Wheezing Gastrointestinal: Negative for: Nausea, Vomiting, Abdominal Pain Genitourinary: Negative for: Dysuria Skin: Negative for: Rash Neurological: Negative for: Headache Physical Exam - Physical Exam Appears: Non-toxic, No Acute Distress Skin: Normal Color, Warm, Dry, No Rash Head: Atraumatic, Normacephalic Eye(s): bilateral: Normal Inspection Ear(s): Bilateral: Normal Nose: Discharge (clear) Oral Mucosa: Moist Throat: Normal, No Erythema, No Exudate Neck: Normal ROM, Supple Chest: Symmetrical Cardiovascular: Rhythm Regular, No Friction Rub, No Murmur Respiratory: Normal Breath Sounds, No Rales, No Rhonchi, No Wheezing Gastrointestinal/Abdominal: Soft, No Tenderness Extremity: Normal ROM, No Tenderness, No Swelling Neurological/Psych: Oriented x3, Normal Speech, Normal Cognition Gait: Steady ED Course And Treatment O2 Sat by Pulse Oximetry: 98 (On RA) Pulse Ox Interpretation: Normal Medical Decision Making Medical Decision Making: Plan: * Claritin 10 mg PO * Prednisone 40 mg PO Disposition - Disposition Referrals: [facility] [Outside] Disposition: HOME/ ROUTINE Disposition Time: : Condition: STABLE Additional Instructions: Follow up with the medical doctor within 1-2 days. Return if worsened. Prescriptions: Loratadine [Claritin] 10 mg PO DAILY #10 tab predniSONE [Prednisone] 20 mg PO BID #10 tab Instructions: Upper Respiratory Infection (ED) Forms: [employer] (Lithuanian) - Clinical Impression Clinical Impression: Upper respiratory infection - PA / GIANT TIRE REPAIRER / Resident Statement MD/DO has reviewed & agrees with the documentation as recorded. - Scribe Statement The provider has reviewed the documentation as recorded by the Scribe Duane Mcwilliams All medical record entries made by the Scribe were at my direction and personally dictated by me. I have reviewed the chart and agree that the record accurately reflects my personal performance of the history, physical exam, medical decision making, and the department course for this patient. I have also personally directed, reviewed, and agree with the discharge instructions and disposition.
[2018-02-18 01:33] VITALS: RESP 16
[2018-02-18 02:35] VITALS: BP 138/94; PULSE 90; TEMP 98.6
[2018-02-18 05:56] VITALS: O2SAT 98
== END 2018-02-18 02:35 | disposition home or self-care (01) ==
LOC: C.ER 23:55
DX: J06.9 Acute upper respiratory infection, unspecified (principal)